=== PATIENT | female | born 1980 | race Caucasian/White ===

== ENCOUNTER → 2018-01-05 15:17 | Outpatient (CLI) | payer OTHER, SELFPAY ==
--- NOTE | 2018-01-05 | DI.US.S_ITS ---
PROCEDURE: US OB >= 14 WEEKS FETUS INDICATIONS: 20 WEEK OUTSIDE/PRIOR DATING DATA: Last menstrual period (LMP): 07/26/2017. LMP-based estimated date of delivery (ULYSSES): 05/03/2018. First dating scan (date and location): 11/24/2017. Estimated date of delivery (ULYSSES) from first dating scan: 04/27/2018. TECHNIQUE: Real-time scanning was performed of the fetus, with image documentation and biometric measurements. Endovaginal scanning: Not required COMPARISON: [facility], , OB COMPLETE LESS THAN 14 WKS, 11/24/2017, 16:23. FINDINGS: General: A single living intrauterine gestation is present. Presentation: Transverse, head to the maternal right. Placenta: Placental position is anterior right, without previa. Amniotic fluid index: 12.6 cm, normal range is 5-24 cm. heart rate: 143 beats per minute. Maternal cervical canal: 4.4 cm long. Normal lower limit is 2.5 cm. biometrics: Biparietal diameter: 22 weeks 5 days Head circumference: 23 weeks 2 days Abdominal circumference: 23 weeks 5 days Femur length: 23 weeks 4 days Estimated gestational age from initial scan: 24 weeks Composite gestational age from present scan: 23 weeks 2 days Estimated weight and percentile: 609 g at the 24th percentile Measurement variability for biometric dating: +/- 7 days from 14 weeks to 15 weeks 6 days gestation, +/- 10 days from 16 weeks to 21 weeks 6 days gestation, +/- 2 weeks from 22 weeks to 27 weeks 6 days gestation, +/- 3 weeks for 28 weeks gestation or later. weight reference: 4500 g or EFW >90/95% is considered macrosomia or large for gestational age. EFW <10% is small for gestational age. EFW 5% or less is considered intra-uterine growth restriction. Anatomic survey: Neuro: Ventricles are non-dilated at less than 10 mm. Cisterna magna is normal at 3-11 mm. Cerebellum is normal in size and morphology. Nuchal skin fold: Normal at less than 6 mm between 14-21 weeks gestational age. Face: Nose and lips, facial profile are normal. Spine: No evidence for spina bifida. Heart: 4-chambered heart is present, with normal ventricular outflow tracts. Diaphragm: Diaphragm is intact. Stomach: Left-sided stomach is present. Kidneys: No hydronephrosis. Normal is less than 5 mm in 2nd trimester, less than 7 mm in 3rd trimester. Cord: 3-vessel cord has orthotopic insertion. Bladder: Normal in size. Extremities: All 4 extremities identified. IMPRESSION: Single, live intrauterine gestation in transverse lie showing composite gestational age of 23 weeks 2 days, normal growth and normal anatomy. Dictated by: Bao Farris M.D. on 01/05/2018 at 16:28 Approved by: Bao Farris M.D. on 01/05/2018 at 16:31
== END ==
PROVIDERS: Family Provider Family Medicine; PCP Family Medicine; Visit Provider Obstetrics & Gynecology
DX: Z36.89 Encounter for other specified antenatal screening (principal); Z3A.23 23 weeks gestation of pregnancy
CPT/HCPCS: 76811

== ENCOUNTER → 2018-02-21 09:37 | Outpatient (CLI) | payer OTHER, SELFPAY ==
[2018-02-21 11:55] LABS: Add Manual Diff / Slide Review NO; Basophils Percent Auto 0.2 % (0-2); Eosinophils Percent Auto 1.3 % (2-4); Hematocrit 36.6 % (36-46); Hemoglobin 12.4 g/dL (12.0-16.0); Lymphocytes Percent Auto 15.1 % (25-40); Mean Corpuscular Hemoglobin 30.6 PG (26-34); Mean Corpuscular Volume 90.1 fL (80-100); Monocytes Percent Auto 5.4 % (3-14); Neutrophils Absolute Auto 8000 /uL (3000-5900); Red Blood Cell Count 4.06 X10^6/uL (4.0-5.2); White Blood Cell Count 10.3 X10^3/uL (4.5-11.0)
[2018-02-21 12:03] LABS: Platelet Count 23 X10^3/uL (150-400)
[2018-02-21 12:14] LABS: RBC Morphology Normal Morphology
[2018-02-21 13:04] LABS: Free T4, Direct Thyroxine 0.78 ng/dL (0.78-2.19)
[2018-02-21 13:18] LABS: Thyroid Stimulating Hormone < 0.02 uIU/mL (0.47-4.68)
== END ==
PROVIDERS: PCP Family Medicine; Visit Provider Obstetrics & Gynecology
DX: D69.6 Thrombocytopenia, unspecified (principal); D69.3 Immune thrombocytopenic purpura; E03.9 Hypothyroidism, unspecified
CPT/HCPCS: 36415; 84439; 84443; 85025

== ENCOUNTER → 2018-04-02 08:14 | Outpatient (CLI) | payer OTHER, SELFPAY ==
[2018-04-02 09:21] LABS: Add Manual Diff / Slide Review NO; Basophils Percent Auto 0.3 % (0-2); Eosinophils Percent Auto 1.4 % (2-4); Hematocrit 37.8 % (36-46); Hemoglobin 12.9 g/dL (12.0-16.0); Lymphocytes Percent Auto 18.7 % (25-40); Mean Corpuscular Hemoglobin 29.8 PG (26-34); Mean Corpuscular Volume 87.6 fL (80-100); Monocytes Percent Auto 4.8 % (3-14); Neutrophils Absolute Auto 8300 /uL (3000-5900); Neutrophils Percent Auto 74.8 % (50-75); Red Blood Cell Count 4.31 X10^6/uL (4.0-5.2); Red Cell Distribution Width 13.4 % (11.6-14.8); White Blood Cell Count 11.1 X10^3/uL (4.5-11.0)
[2018-04-02 09:23] LABS: Platelet Count 26 X10^3/uL (150-400)
[2018-04-03 11:47] LABS: Strep Grp B PCR POS for Grp B Strep
== END ==
PROVIDERS: PCP Family Medicine; Visit Provider Obstetrics & Gynecology
DX: D69.3 Immune thrombocytopenic purpura (principal); Z34.83 Encounter for supervision of other normal pregnancy, third trimester; Z3A.35 35 weeks gestation of pregnancy
CPT/HCPCS: 36415; 85025; 87653

== ENCOUNTER → 2018-04-16 08:47 | Outpatient (CLI) | payer OTHER, SELFPAY ==
[2018-04-16 09:25] LABS: Add Manual Diff / Slide Review NO; Basophils Percent Auto 0.4 % (0-2); Eosinophils Percent Auto 1.2 % (2-4); Hematocrit 39.1 % (36-46); Hemoglobin 13.4 g/dL (12.0-16.0); Lymphocytes Percent Auto 21.7 % (25-40); Mean Corpuscular HGB Conc 34.2 % (30-36); Mean Corpuscular Volume 87.6 fL (80-100); Monocytes Percent Auto 5.4 % (3-14); Neutrophils Absolute Auto 6700 /uL (3000-5900); Neutrophils Percent Auto 71.3 % (50-75); Red Blood Cell Count 4.46 X10^6/uL (4.0-5.2); Red Cell Distribution Width 13.4 % (11.6-14.8); White Blood Cell Count 9.4 X10^3/uL (4.5-11.0)
[2018-04-16 10:00] LABS: Platelet Count 28 X10^3/uL (150-400)
[2018-04-16 10:25] LABS: RBC Morphology Normal Morphology
== END ==
PROVIDERS: PCP Obstetrics & Gynecology; Visit Provider Obstetrics & Gynecology
DX: D69.3 Immune thrombocytopenic purpura (principal)
CPT/HCPCS: 36415; 85025

== ENCOUNTER 2018-04-24 06:38 | Inpatient (IN) | payer OTHER, SELFPAY ==
[2018-04-24] MEDS: LACTATED RINGERS 1,000 ML 100 ML IV (07:15)
[2018-04-24] MEDS: PENICILLIN G POTASSIUM 5,000,000 UNIT in DEXTROSE 5% IN WATER 250 ML IV (07:15)
[2018-04-24 07:29] LABS: Add Manual Diff / Slide Review NO; Basophils Percent Auto 0.4 % (0-2); Eosinophils Percent Auto 0.1 % (2-4); Hematocrit 38.7 % (36-46); Hemoglobin 13.2 g/dL (12.0-16.0); Lymphocytes Percent Auto 10.5 % (25-40); Mean Corpuscular HGB Conc 34.1 % (30-36); Mean Corpuscular Hemoglobin 29.9 PG (26-34); Mean Corpuscular Volume 87.7 fL (80-100); Monocytes Percent Auto 3.7 % (3-14); Neutrophils Absolute Auto 9800 /uL (3000-5900); Neutrophils Percent Auto 85.3 % (50-75); Platelet Count 48 X10^3/uL (150-400); Red Blood Cell Count 4.41 X10^6/uL (4.0-5.2); Red Cell Distribution Width 13.6 % (11.6-14.8); White Blood Cell Count 11.5 X10^3/uL (4.5-11.0)
[2018-04-24] MEDS: OXYTOCIN 10 UNIT/ML VIAL IM (09:14)
[2018-04-24 12:38] VITALS: BP 119/75
[2018-04-25 06:34] LABS: Add Manual Diff / Slide Review NO; Basophils Percent Auto 0.3 % (0-2); Eosinophils Percent Auto 0.5 % (2-4); Hemoglobin 13.2 g/dL (12.0-16.0); Lymphocytes Percent Auto 14.7 % (25-40); Mean Corpuscular HGB Conc 33.8 % (30-36); Mean Corpuscular Hemoglobin 29.7 PG (26-34); Mean Corpuscular Volume 87.8 fL (80-100); Monocytes Percent Auto 6.8 % (3-14); Neutrophils Absolute Auto 9000 /uL (3000-5900); Neutrophils Percent Auto 77.7 % (50-75); Red Blood Cell Count 4.44 X10^6/uL (4.0-5.2); Red Cell Distribution Width 13.9 % (11.6-14.8); White Blood Cell Count 11.5 X10^3/uL (4.5-11.0)
[2018-04-25 07:08] LABS: Platelet Count 16 X10^3/uL (150-400)
[2018-04-25 07:12] LABS: RBC Morphology Normal Morphology
[2018-04-25 11:40] VITALS: BP 120/81; PULSE 68; RESP 16; TEMP 36.8
--- NOTE | 2018-05-03 15:33 | P.HPOB_ITS ---
OB HPI Date/Time Date of admission: 04/24/18 Date Patient Seen: 04/24/18 Time Patient Seen: 07:30 History of Present Condition Chief complaint: OBS : 2 Para: 1 Estimated Date of Delivery: 05/03/18 Estimated Gestational Age (weeks): 38+ 5 Narrative: Sandie Carrillo is a 37 year old female 2 para 1 at 38-,5/7 weeks gestation who presented with ruptured membranes in active labor complicated by ITP and group B strep positive Indications Other reason(s) for admission: Active labor, ruptured membranes History of Present care: limited care, initiated at week # (17), number of visits (3) and pounds weight gain (25) Dating criteria: LMP confirmed by 2nd trimester US Ultrasounds: normal mid trimester US Obstetrical complications: other (ITP) Medical complications: other (ITP) Preadmission Labs Blood type: B (+) positive -: Antibody screen: negative, GBS status: positive, HBsAG: negative, HIV: negative, HSV 1: positive, HSV 2: negative and RPR/VDLR: negative -: Rubella: immune and Varicella: immune HCAB: negative PAP: Abnormal (Low-grade EMMANUEL, HPV negative) Urine: Enterococcus Prior (ies) History: 1 spontaneous vaginal delivery at 39 weeks UW 7#9oz Compl by ITP Evaluation Evaluation Baseline heart rate: 140 Variability: Moderate (11-25) monitor accelerations: Present monitor decelerations: Absent Contraction Frequency (minutes): 2 Uterine Contraction Intensity: Strong/Firm Category of Tracing: I Cervical dilation (cm): 6 Cervical effacement (%): 75 station: -1 Laboratory results: Laboratory Tests 04/24/18 04/24/18 04/25/18 07:15 07:15 05:00 WBC 11.5 H 11.5 H RBC 4.41 4.44 Hgb 13.2 13.2 Hct 38.7 39.0 MCV 87.7 87.8 MCH 29.9 29.7 MCHC 34.1 33.8 RDW 13.6 13.9 Plt Count 48 L 16 L* Neut % (Auto) 85.3 H 77.7 H Lymph % (Auto) 10.5 L 14.7 L [place] % (Auto) 3.7 6.8 Eos % (Auto) 0.1 L 0.5 L Baso % (Auto) 0.4 0.3 Neut # (Auto) 9800 H 9000 H RBC Morphology Normal morphology Blood Type B Positive Antibody Screen Negative Crossmatch See Detail PFSH Medical History Graves' disease (Chronic) Thrombocytopenia (Resolved 1996) Surgical History History of dental surgery (Resolved 04/2008) Family History Father Age: 75 Stroke Liver disease Grandfather Heart disease Heart attack Grandfather Stroke Grandmother Stroke Alzheimer's disease Social History Smoking Status: Never smoker Meds Home Medications Medication Instructions Recorded Confirmed Type thyroid (pork) 60 mg tablet 180 mg PO QDAY@0600 #180 tab 03/20/18 Rx prednisone 20 mg tablet 20 mg PO DAILY #14 tab 04/15/18 Rx prednisone 20 mg PO DAILY 04/24/18 04/24/18 History prednisone 10 mg tablet See Label Instructions PO DAILY 04/25/18 Rx #21 tab prednisone 20 mg tablet See Label Instructions PO DAILY 04/25/18 Rx #47 tab Allergies Allergy/AdvReac Type Severity Reaction Status Date / Time aspirin [ASPIRIN] Allergy Unknown Unverified 11/15/17 12:37 NSAIDS (Non-Steroidal AdvReac Verified 04/24/18 12:42 Anti-Inflamma Exam Vital Signs (past 8 hours): Generally: A well-developed, well-nourished white female, moderate distress secondary to contractions Lungs: Clear to auscultation bilaterally Cardiovascular: Regular rate and rhythm Fundal height: 38 cm Estimated weight:7 1/2 # Extremities: Negative Homans, no edema Objective Labs Result Diagrams: 04/25/18 05:00 Assessment and Plan (1) 38 weeks gestation of : Current visit: Yes Status: Acute (2) Positive GBS test: Current visit: Yes Status: Acute (3) Chronic ITP (idiopathic thrombocytopenia): Current visit: Yes Status: Acute Plan: Plan: Assessment: 37-year-old 2 para 1 at 38-,5/7 weeks gestation in active labor with ruptured membranes GBS positive [place] [id number] Plan: Obtained platelets Epidural once platelets infused GBS prophylaxis Expected management to spontaneous vaginal delivery
--- NOTE | 2018-05-03 15:33 | PM.OBPRVD ---
Delivery date: 04/24/18 Intrapartal events: None Induction method: none Delivery monitor: external FHT and external uterine Route of delivery: Episiotomy description: None Estimated blood loss (mL): 75 Anesthesia type: None Complications: None Narrative: Patient progressed to complete dilation quickly. She was complete and pushed for 2 min. At 9:12 a.m., a live female delivered spontaneously over an intact perineum. No nuchal cord. The remainder of the body delivered without difficulty and was placed on mom's abdomen. Pitocin was given in the IV fluids. The cord was double clamped and cut. Cord bloods were obtained. Placenta delivered intact with a 3 vessel cord at 9:45 a.m.. Estimated blood loss 75 cc. No lacerations. No analgesia. Apgars 9 at 1 min and 9 at 5 min. . Mom and infant stable to recovery.
--- NOTE | 2018-05-03 15:35 | PM.OBDS.1 ---
Discharge Providers Date of admission: 04/24/18 06:38 Primary care physician: Neyda Davis MD Consults: 04/24/18 09:48 Consult to Patient Placement Coordinator Routine Comment: Discharge provider: Neyda Davis MD Summary Date Patient Seen: 04/25/18 Time Patient Seen: 13:45 Hospital Course: Patient is a 37-year-old 2 para 2 who presented in active labor on 04/24/2018. She had ruptured membranes. She was group B strep positive. She received 1 dose of antibiotics. She has chronic [place] [address]. She was not able to get an epidural. She progressed to complete dilation and had an uncomplicated spontaneous vaginal delivery. On day # 1. Her platelet count dropped to 16,000. We recommended a transfusion with platelets, but patient refused. She was sent home on a prednisone taper over the course of a few weeks. Peripartum Data Delivery Method: Natural Vaginal Episiotomy description: None Procedures: Spontaneous vaginal delivery complications: other (Low platelets) Discharge Diagnosis (1) 38 weeks gestation of : Status: Acute (2) Positive GBS test: Status: Acute (3) Chronic ITP (idiopathic thrombocytopenia): Status: Acute Status at Discharge Functional status at discharge: independent ambulation Overall status at discharge: patient is progressing back to baseline Time Spent with Patient Total time spent providing and/or coordinating discharge services: Less than 30 minutes Objective Labs Result Diagrams: 04/25/18 05:00 Discharge Plan Discharge Plan Patient Disposition: Home Discharge comment: Call early if starts to bleed Discharge Med Rec/Prescriptions Prescriptions: No Action thyroid (pork) [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 6 week pp check Oct 17 1130) Provider Discharge Instructions Diet: Diet as Tolerated Activity: No intercourse Skin/Wound/Dressing Care Report to your healthcare provider any signs of infection, such as:: chills, fever, increased pain and unusual drainage Visit Report/Discharge Packet Instructions: DI for Labor and Delivery, Vaginal Stand Alone Forms: Discharge: Care Visit Report Forms: Stroke Signs & Symptoms Discharge Data Primary Care Provider: Neyda Davis Attending Provider: Neyda Davis Admit Date/Time: 04/24/18 06:38 Discharges patient from system. Discharge Date/Time: 04/25/18 14:00
== END 2018-04-25 14:00 | disposition home or self-care (01) | DRG 775 ==
PROVIDERS: Admitting Provider Obstetrics & Gynecology; PCP Obstetrics & Gynecology; Visit Provider Obstetrics & Gynecology
DX: O99.12 Other diseases of the blood and blood-forming organs and certain disorders involving the immune mechanism complicating childbirth (principal); D69.3 Immune thrombocytopenic purpura; O99.824 Streptococcus B carrier state complicating childbirth; Z3A.38 38 weeks gestation of pregnancy; Z37.0 Single live birth
CPT/HCPCS: 36415; 59050; 59410; 84112; 85025; 86850; 86900; 86901; P9019; G0379; J2540; J2590

== ENCOUNTER → 2018-05-01 12:24 | Outpatient (CLI) | payer OTHER, SELFPAY ==
[2018-05-01 13:01] LABS: Platelet Count 74 X10^3/uL (150-400)
== END ==
PROVIDERS: PCP Obstetrics & Gynecology; Visit Provider Obstetrics & Gynecology
DX: D69.3 Immune thrombocytopenic purpura (principal)
CPT/HCPCS: 36415; 85049

== ENCOUNTER → 2018-06-05 13:34 | Outpatient (CLI) | payer OTHER, SELFPAY ==
[2018-06-05 14:16] LABS: Add Manual Diff / Slide Review NO; Basophils Percent Auto 0.4 % (0-2); Eosinophils Percent Auto 2.3 % (2-4); Hematocrit 42.8 % (36-46); Hemoglobin 14.5 g/dL (12.0-16.0); Lymphocytes Percent Auto 23.7 % (25-40); Mean Corpuscular HGB Conc 33.8 % (30-36); Mean Corpuscular Hemoglobin 29.4 PG (26-34); Mean Corpuscular Volume 86.8 fL (80-100); Monocytes Percent Auto 6.6 % (3-14); Neutrophils Absolute Auto 6300 /uL (3000-5900); Red Blood Cell Count 4.93 X10^6/uL (4.0-5.2); Red Cell Distribution Width 13.4 % (11.6-14.8); White Blood Cell Count 9.4 X10^3/uL (4.5-11.0)
[2018-06-05 14:36] LABS: Platelet Count 25 X10^3/uL (150-400)
[2018-06-05 14:38] LABS: Platelet Estimate Decreased on smear
[2018-06-05 14:49] LABS: Free T4, Direct Thyroxine 1.54 ng/dL (0.78-2.19)
[2018-06-05 15:03] LABS: Thyroid Stimulating Hormone < 0.02 uIU/mL (0.47-4.68)
== END ==
PROVIDERS: Family Provider Family Medicine; PCP Obstetrics & Gynecology; Visit Provider Obstetrics & Gynecology
DX: E03.9 Hypothyroidism, unspecified (principal); D69.3 Immune thrombocytopenic purpura
CPT/HCPCS: 36415; 84439; 84443; 85025

== ENCOUNTER → 2018-08-28 17:11 | Outpatient (CLI) | payer OTHER, SELFPAY ==
[2018-08-28 18:38] LABS: Thyroid Stimulating Hormone 0.03 uIU/mL (0.47-4.68)
[2018-08-28 19:12] LABS: Platelet Count 25 X10^3/uL (150-400)
[2018-08-28 19:33] LABS: Platelet Estimate Decreased on smear; RBC Morphology Normal Morphology
== END ==
PROVIDERS: Family Provider Family Medicine; PCP Family Medicine; Visit Provider Family Medicine
DX: D69.3 Immune thrombocytopenic purpura (principal); E03.9 Hypothyroidism, unspecified
CPT/HCPCS: 36415; 84443; 85049

== ENCOUNTER → 2019-12-10 14:06 | Outpatient (CLI) | payer OTHER, SELFPAY ==
[2019-12-10 16:41] LABS: TSH w/ Reflex to FT4 < 0.02 uIU/mL (0.47-4.68)
== END ==
PROVIDERS: Family Provider Family Medicine; PCP Family Medicine; Referring Provider Family Medicine; Visit Provider Family Medicine
DX: E03.9 Hypothyroidism, unspecified (principal); Z86.39 Personal history of other endocrine, nutritional and metabolic disease; Z92.3 Personal history of irradiation
CPT/HCPCS: 36415; 84439; 84443

== ENCOUNTER → 2020-01-28 08:16 | Outpatient (CLI) | payer OTHER, SELFPAY ==
[2020-01-28 10:42] LABS: Thyroid Stimulating Hormone 1.28 uIU/mL (0.47-4.68)
== END ==
PROVIDERS: Family Provider Family Medicine; PCP Family Medicine; Referring Provider Family Medicine; Visit Provider Family Medicine
DX: E03.9 Hypothyroidism, unspecified (principal)
CPT/HCPCS: 36415; 84443

== ENCOUNTER → 2021-06-28 07:46 | Outpatient (CLI) | payer SELFPAY ==
[2021-06-28 10:07] LABS: Thyroid Stimulating Hormone < 0.015 uIU/mL (0.47-4.68)
== END ==
PROVIDERS: Family Provider Family Medicine; PCP Family Medicine; Referring Provider Family Medicine; Visit Provider Family Medicine
DX: E03.9 Hypothyroidism, unspecified (principal)
CPT/HCPCS: 36415; 84443

== ENCOUNTER → 2021-11-24 10:00 | Outpatient (CLI) | payer SELFPAY ==
[2021-11-24 11:12] LABS: TSH w/ Reflex to FT4 0.02 uIU/mL (0.47-4.68)
[2021-11-24 11:37] LABS: Free T4, Direct Thyroxine 1.01 ng/dL (0.78-2.19)
== END ==
PROVIDERS: Family Provider Family Medicine; PCP Family Medicine; Referring Provider Family Medicine; Visit Provider Family Medicine
DX: E03.9 Hypothyroidism, unspecified (principal); Z86.39 Personal history of other endocrine, nutritional and metabolic disease; Z92.3 Personal history of irradiation
CPT/HCPCS: 36415; 84439; 84443

== ENCOUNTER → 2023-01-04 08:41 | Outpatient (CLI) | payer OTHER, MEDICAID, SELFPAY ==
--- NOTE | 2023-01-04 | DI.US.S_ITS ---
PROCEDURE: US OB >= 14 WEEKS FETUS INDICATIONS: 20 weeks gestation of OUTSIDE/PRIOR DATING DATA: Last menstrual period (LMP): 08/18/2022. LMP-based estimated date of delivery (ULYSSES): 05/25/2023 First dating scan (date and location): 01/04/2023. Estimated date of delivery (ULYSSES) from first dating scan: 05/24/2023. TECHNIQUE: Real-time scanning was performed of the fetus, with image documentation and biometric measurements. Endovaginal scanning: Not performed COMPARISON: None from this . FINDINGS: General: A single living intrauterine gestation is present. Presentation: Cephalic. Placenta: Placental position is posterior fundal , without previa. Amniotic fluid index: 14.8 cm, normal range is 5-24 cm. Single deepest vertical pocket is 5.3 cm. heart rate: 147 beats per minute. Maternal cervical canal: 4.0 cm long. Normal lower limit is 2.5 cm. biometrics: Biparietal diameter: 4.6 cm 20 weeks 0 days Head circumference: 17.5 cm 20 weeks 0 days Abdominal circumference: 14.5 cm 19 weeks 6 days Femur length: 3.2 cm 19 weeks 6 days Composite gestational age from present scan: 20 weeks 0 days Estimated weight and percentile: 318 g, 46th percentile Anatomic survey: Neuro: Ventricles are non-dilated at less than 10 mm. Cisterna magna is normal at 3-11 mm. Cerebellum is normal in size and morphology. Nuchal skin fold: Normal at less than 6 mm between 14-21 weeks gestational age. Face: Nose and lips, facial profile are normal. Spine: No evidence for spina bifida. Heart: 4-chambered heart is present, with normal ventricular outflow tracts. Diaphragm: Diaphragm is intact. Stomach: Left-sided stomach is present. Kidneys: No hydronephrosis. Normal is less than 5 mm in 2nd trimester, less than 7 mm in 3rd trimester. Cord: 3-vessel cord has orthotopic insertion. Bladder: Normal in size. Extremities: All 4 extremities identified. IMPRESSION: 1. Single living intrauterine . 2. Normal 2nd trimester anatomy survey. No anatomic anomalies detected at this time. We strive to produce accurate, complete, and clear reports of imaging services. To assist us in improving patient care, this report was composed using standard report templates and voice recognition software. Therefore, it may contain abnormal punctuation, insertions and/or omissions. Occasional wrong-word or sound-alike substitutions may occur. Though we review the report and make efforts to correct it, we do recommend that the report be read carefully in proper context to recognize any text inaccuracies. Dictated by: Dany Mancia M.D. on 01/04/2023 at 16:03 Approved by: Dany Mancia M.D. on 01/04/2023 at 16:10
== END ==
PROVIDERS: Family Provider Family Medicine; PCP Family Medicine; Referring Provider Nurse Practitioner Obstetrics & Gynecology; Visit Provider Nurse Practitioner Obstetrics & Gynecology
DX: Z36.89 Encounter for other specified antenatal screening (principal); Z3A.20 20 weeks gestation of pregnancy
CPT/HCPCS: 76811

== ENCOUNTER → 2023-05-02 07:16 | Outpatient (CLI) | payer OTHER, MEDICAID, SELFPAY ==
[2023-05-02 09:54] LABS: Hematocrit 34.3 % (36-46); Hemoglobin 11.9 g/dL (12.0-16.0); Mean Corpuscular HGB Conc 34.5 % (30-36); Mean Corpuscular Hemoglobin 29.9 PG (26-34); Mean Corpuscular Volume 86.5 fL (80-100); Red Blood Cell Count 3.97 X10^6/uL (4.0-5.2); Red Cell Distribution Width 13.7 % (11.6-14.8); White Blood Cell Count 8.8 X10^3/uL (4.5-11.0)
[2023-05-02 09:58] LABS: Platelet Count 20 X10^3/uL (150-400)
== END ==
PROVIDERS: Family Provider Family Medicine; PCP Family Medicine; Referring Provider Advanced Practice Midwife; Visit Provider Advanced Practice Midwife
DX: Z34.83 Encounter for supervision of other normal pregnancy, third trimester (principal); D69.2 Other nonthrombocytopenic purpura
CPT/HCPCS: 36415; 85027; 86850; 86900; 86901

== ENCOUNTER → 2023-05-10 15:02 | Outpatient (ROUT) | payer OTHER, MEDICAID, SELFPAY ==
[2023-05-10 15:09] LABS: Add Manual Diff / Slide Review NO; Basophils Absolute Auto 0 /uL (0-100); Basophils Percent Auto 0.3 % (0-2); Eosinophils Absolute Auto 0 /uL (0-450); Eosinophils Percent Auto 0.1 % (2-4); Hematocrit 33.5 % (36-46); Hemoglobin 11.2 g/dL (12.0-16.0); Lymphocytes Absolute Auto 1300 /uL (1100-4500); Lymphocytes Percent Auto 11.6 % (25-40); Mean Corpuscular HGB Conc 33.4 % (30-36); Mean Corpuscular Hemoglobin 29.1 PG (26-34); Monocytes Absolute Auto 300 /uL (0-900); Monocytes Percent Auto 2.7 % (3-14); Neutrophils Absolute Auto 9600 /uL (1500-7000); Neutrophils Percent Auto 85.3 % (50-75); Platelet Count 52 X10^3/uL (150-400); Red Blood Cell Count 3.85 X10^6/uL (4.0-5.2); Red Cell Distribution Width 13.8 % (11.6-14.8); White Blood Cell Count 11.2 X10^3/uL (4.5-11.0)
== END ==
PROVIDERS: Family Provider Family Medicine; PCP Family Medicine; Visit Provider Advanced Practice Midwife
DX: D69.42 Congenital and hereditary thrombocytopenia purpura (principal)
CPT/HCPCS: 85025

== ENCOUNTER → 2023-05-16 12:28 | Outpatient (CLI) | payer OTHER, MEDICAID, SELFPAY ==
[2023-05-16 12:45] LABS: Basophils Absolute Auto 0 /uL (0-100); Basophils Percent Auto 0.3 % (0-2); Eosinophils Absolute Auto 0 /uL (0-450); Eosinophils Percent Auto 0.1 % (2-4); Hematocrit 35.8 % (36-46); Hemoglobin 12.1 g/dL (12.0-16.0); Lymphocytes Absolute Auto 1400 /uL (1100-4500); Lymphocytes Percent Auto 10.4 % (25-40); Mean Corpuscular HGB Conc 33.7 % (30-36); Mean Corpuscular Hemoglobin 28.6 PG (26-34); Mean Corpuscular Volume 84.9 fL (80-100); Monocytes Absolute Auto 400 /uL (0-900); Monocytes Percent Auto 3.4 % (3-14); Neutrophils Absolute Auto 11300 /uL (1500-7000); Neutrophils Percent Auto 85.8 % (50-75); Red Blood Cell Count 4.22 X10^6/uL (4.0-5.2); Red Cell Distribution Width 13.8 % (11.6-14.8); White Blood Cell Count 13.2 X10^3/uL (4.5-11.0)
[2023-05-16 12:50] LABS: Add Manual Diff / Slide Review SLIDE REVIEW
[2023-05-16 13:00] LABS: Platelet Count 34 X10^3/uL (150-400)
[2023-05-16 13:08] LABS: RBC Morphology Normal Morphology
== END ==
PROVIDERS: Family Provider Family Medicine; PCP Family Medicine; Referring Provider Nurse Practitioner Obstetrics & Gynecology; Visit Provider Nurse Practitioner Obstetrics & Gynecology
DX: Z34.83 Encounter for supervision of other normal pregnancy, third trimester (principal); D69.2 Other nonthrombocytopenic purpura; Z3A.38 38 weeks gestation of pregnancy
CPT/HCPCS: 85025

== ENCOUNTER 2023-05-18 07:24 | Inpatient (IN) | payer OTHER, MEDICAID, SELFPAY ==
--- NOTE | 2023-05-18 08:00 | P.HPOB_ITS ---
OB HPI Date/Time Date of admission: 05/18/23 Date Patient Seen: 05/18/23 Time Patient Seen: 07:45 History of Present Condition Chief complaint: INDUCTION : 3 Para: 2 Estimated Date of Delivery: 05/25/23 Estimated Gestational Age (weeks): 39 Narrative: Sandie Carrillo is a 42 year old female at 39 weeks 0 days by sure LMP, concordant with 13 week US, here for IOL for thrombocytopenia. She received regular care with CNMs with consultation with Dr.K Davis. complicated by ITP, advanced maternal age and acquired hypothyroidism. Patient declined referral to MFM and hematology throughout her . In preparation for this IOL, Sandie took a two week course of prednisone, 20mg daily initiated on 04/30/23, per recommendation from consulting MD Dr. Davis who delivered her second baby. Prior to starting steroid course her platelets were 20, after one week of therapy they chris to 52 and yesterday had dropped to 34. The blood bank has planned for this induction and has platelets in house. She does NOT plan for an epidural and has no history of PPH. She presents with her Tae, is feeling regular movement, no contractions, LOF or VB. Indications Indication for induction OB: other (idiopathic thrombocytopenia, AMA) History of Present care: good care, initiated at week # (13), number of visits (9) and pounds weight gain (18) Dating criteria: LMP confirmed by 1st trimester US Ultrasounds: normal 1st trimester US and normal mid trimester US Medical complications: other (idiopathic thrombocytopenia ) Preadmission Labs Blood type: B (+) positive -: Antibody screen: negative, GBS status: positive, HBsAG: negative, HIV: negative and RPR/VDLR: negative -: Chlamydia screen: not detected and Gonorrhea screen: not detected -: Rubella: immune and Varicella: immune HCT: 35.8 HCAB: negative PAP: Normal Cell-free DNA: Negative 1 hr GTT: 117 Prior (ies) History: 2017 (Platelets 33 on admission)- no complications with bleeding, CBC normal 2017 (Platelets 48 on admission)- no complications with bleeding, CBC declined by aprents Evaluation Evaluation Baseline heart rate: 130 Variability: Moderate (11-25) monitor accelerations: Present Monitor Decelerations: Absent Contraction Frequency (minutes): 0 Category of Tracing: Reactive Dilation (cm): 3 Effacement (%): 50 Dilation: 3-4 cm Effacement: 40-50% station: -2 Position of cervix: mid Consistency: medium Palomino score: 6 Comments: Sanchez balloon inserted per protocol, inflated to 60mL with normal saline, pt tolerated procedure well PFSH Medical History Thrombocytopenia (1996) Graves' disease Surgical History History of dental surgery (04/2008) Family History Father Age: 80 Stroke Liver disease Grandfather Heart disease Heart attack Grandfather Stroke Grandmother Stroke Alzheimer's disease Social History marital status: Smoking Status: Never smoker alcohol intake: never substance use type: does not use Meds Home Medications and Allergies Home Medications Medication Instructions Recorded Confirmed Type thyroid (pork) 60 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 120 mg (2 x 60 mg) PO QDAY@0600 04/18/22 05/18/23 Rx Thyroid) #180 tabs prednisone 20 mg tablet 20 mg PO DAILY 05/18/23 05/18/23 History Allergies Allergy/AdvReac Type Severity Reaction Status Date / Time aspirin [ASPIRIN] Allergy Unknown Verified 12/12/19 09:26 NSAIDS (Non-Steroidal AdvReac Verified 12/12/19 09:26 Anti-Inflamma Review of Systems Review of Systems ROS: Yes All systems reviewed with the patient and are negative except as otherwise documented OB Exam Vital signs Blood Pressure: 118/80 Pulse Rate: 79 Resp Effort & Inspection: normal respiratory effort Auscultation: clear to auscultation bilaterally Cardio Rate: regular rate Rhythm: regular rhythm Presentation: vertex Objective Labs 05/18/23 07:55 Assessment and Plan Assessment and Plan Assessment and Plan narrative: A: Term multipara IOL, cervical ripening indicated Chronic idiopathic thrombocytopenia AMA Acquried hypothyroidism Prophylactic antibiotics indicated, GBS positive, no signs of infection Rhogam not indicated FHR Cat 1 P: Admit to center Start GBS prophylaxis now Intermittent auscultation per policy Discussed case with Dr. Davis, consulting OB for this case, plan for two IVs, platelet transfusion x1, recheck CBC two hours after infusion complete Taper Prednisone starting tomorrow Informed consent for IOL signed. Discussed options for cervical ripening with Sandie, reviewed risks and benefits of low dose pitocin vs. misoprosotol vs. sanchez balloon. Sandie opted for Sanchez balloon, which was placed during admission exam. Reassess in 4 hours or sooner PRN Will continue to consult/co-manage with throughout labor and as needed.
[2023-05-18 08:23] LABS: Basophils Absolute Auto 100 /uL (0-100); Basophils Percent Auto 0.7 % (0-2); Eosinophils Absolute Auto 0 /uL (0-450); Eosinophils Percent Auto 0.3 % (2-4); Hematocrit 34.7 % (36-46); Hemoglobin 11.9 g/dL (12.0-16.0); Lymphocytes Absolute Auto 1600 /uL (1100-4500); Lymphocytes Percent Auto 12.2 % (25-40); Mean Corpuscular HGB Conc 34.2 % (30-36); Mean Corpuscular Hemoglobin 28.8 PG (26-34); Mean Corpuscular Volume 84.2 fL (80-100); Monocytes Absolute Auto 400 /uL (0-900); Monocytes Percent Auto 2.8 % (3-14); Neutrophils Absolute Auto 10900 /uL (1500-7000); Red Blood Cell Count 4.12 X10^6/uL (4.0-5.2); Red Cell Distribution Width 14.3 % (11.6-14.8)
[2023-05-18 08:26] LABS: Add Manual Diff / Slide Review SLIDE REVIEW; Platelet Count 37 X10^3/uL (150-400)
[2023-05-18] MEDS: AMPICILLIN 2,000 MG in SODIUM CHLORIDE 0.9% 100 ML 200 MG IV (08:27)
[2023-05-18] MEDS: LACTATED RINGERS 1,000 ML 100 ML IV (08:27)
[2023-05-18 08:40] VITALS: BP 118/80; PULSE 79
[2023-05-18 08:49] LABS: RBC Morphology Normal Morphology
[2023-05-18 09:00] VITALS: BP 118/80
[2023-05-18 09:29] VITALS: BP 111/65; PULSE 66; RESP 16; TEMP 36.3
[2023-05-18 09:45] VITALS: BP 110/72; PULSE 68; RESP 17; TEMP 36.4
[2023-05-18 10:45] VITALS: BP 110/72; PULSE 72; RESP 16; TEMP 36.3
--- NOTE | 2023-05-18 12:10 | PM.OBPNLAB ---
Date/Time Date Patient Seen: 05/18/23 Time Patient Seen: 12:10 Pain Control Pain control: tolerating well Comments: Sandie is resting in bed, feeling mild cramps. With CNM and SNM at bedside discussing options, she got up to use the bathroom and the sanchez balloon came out. BP: 113/66 mmHg P: 64 bpm T: 36.3 C Pelvic Exam Amniotic membrane status: Intact Comments: CE deferred until after CBC result.. Contractions Contractions on admission: none Monitor mode: Palpation Contraction frequency (min): 9 (irregular cramping) Contraction pattern: Irregular Contraction intensity: Mild Status Heart Rate Baseline: 135 Monitor Decelerations: Absent Comments: FHR reassuring by IA. Assessment and Plan Assessment: induction ongoing Plan: begin patient augmentation Comments: A: Term multipara IOL, cervical ripening complete, augmentation indicated Idiopathic thrombocytopenia AMA Hypothyroidism Adequate GBS coverage FHR reassuring P: Place second IV and collect CBC to check platelet level following transfusion Continue GBS prophylactic antibiotics per protocol Alternate movement and rest Discussed options of starting pitocin or AROM, Sandie would like us to try breaking her water first Plan for cervical exam and AROM following CBC result. Will order additional platelets as indicated. Plan continuous labor support after AROM.
[2023-05-18] MEDS: AMPICILLIN 1,000 MG in SODIUM CHLORIDE 0.9% 100 ML 200 MG IV ×2 (12:35→16:28)
[2023-05-18 13:11] LABS: Basophils Absolute Auto 0 /uL (0-100); Basophils Percent Auto 0.1 % (0-2); Eosinophils Absolute Auto 0 /uL (0-450); Hematocrit 33.9 % (36-46); Hemoglobin 11.5 g/dL (12.0-16.0); Lymphocytes Absolute Auto 700 /uL (1100-4500); Lymphocytes Percent Auto 4.1 % (25-40); Mean Corpuscular HGB Conc 33.8 % (30-36); Mean Corpuscular Hemoglobin 28.6 PG (26-34); Mean Corpuscular Volume 84.5 fL (80-100); Monocytes Absolute Auto 300 /uL (0-900); Monocytes Percent Auto 1.5 % (3-14); Neutrophils Absolute Auto 16200 /uL (1500-7000); Neutrophils Percent Auto 94.3 % (50-75); Platelet Count 37 X10^3/uL (150-400); Red Blood Cell Count 4.01 X10^6/uL (4.0-5.2); White Blood Cell Count 17.2 X10^3/uL (4.5-11.0)
[2023-05-18 13:12] LABS: Add Manual Diff / Slide Review SLIDE REVIEW
[2023-05-18 13:23] LABS: RBC Morphology Normal Morphology
[2023-05-18 13:24] LABS: Platelet Estimate Decreased on smear
--- NOTE | 2023-05-18 13:41 | PM.OBPNLAB ---
Date/Time Date Patient Seen: 05/18/23 Time Patient Seen: 13:30 Pain Control Pain control: tolerating well Comments: Sandie is doing well, sitting on the end of the bed and looking forward to getting labor going. Continues to desire AROM and avoid pitocin, if possible. BP: 116/63 mmHg P: 86 bpm T: 36.3C Sp02: 98% Pelvic Exam Dilation (cm): 5.5 Effacement (%): 80 station: -3 Amniotic membrane status: Ruptured (AROM, clear fluid) Contractions Monitor mode: External (for NST, palpating with IA) Contraction frequency (min): 3 (irregular cramping, irritability on toco) Contraction duration (min): 1 Contraction pattern: Irregular Contraction intensity: Mild Status status: Category l Heart Rate Baseline: 130 Monitor Accelerations: Present Monitor Decelerations: Absent Monitor Variability: Moderate Comments: FHR reassuring by IA, continuous monitoring before and after AROM Cat 1 Assessment and Plan Assessment: induction ongoing Plan: begin patient augmentation Comments: A: Term multipara IOL, early labor, augmentation indicated AROM, clear fluid Idiopathic thrombocytopenia Adequate GBS prophylaxis FHR Cat 1 P: Continuous FHR monitor for 20 minutes following AROM, if Cat 1 may switch to IA q30 min Upright position for 30 minutes, then alternate movement and rest Consulted Dr. Davis re repeat CBC results - discussed repeat platelets of 37 following transfusion, additional platelets ordered, ok to move forward with plan for IOL and will plan to transfuse again closer to delivery Will consider augmentation if no progress at next check Reassess in 2-4 hrs or sooner PRN
--- NOTE | 2023-05-18 16:58 | PM.OBPNLAB ---
Date/Time Date Patient Seen: 05/18/23 Time Patient Seen: 16:58 Pain Control Pain control: tolerating well Comments: Sandie is laying on her right side while the nurse sets up nitrous oxide for her. She labored in the tub for the last 2 hours with good relief. Contractions are feeling more intense, continues to leak pink/blood tinged amniotic fluid. She declines a cervical exam. BP: 110/65 mmHg P: 80 bpm T: 36.2 C Pelvic Exam Amniotic membrane status: Ruptured (clear fluid) Comments: Ce declined Contractions Monitor mode: Palpation Contraction frequency (min): 3 Contraction duration (min): 1 Contraction pattern: Regular Contraction intensity: Moderate Status Heart Rate Baseline: 140 Comments: FHR reassuring by IA, no decreases. Assessment and Plan Assessment: induction ongoing Comments: A: Term multipara IOL on-going, active labor Idiopathic thrombocytopenia Adequate GBS prophylaxis Coping well FHR reassuring P: Nitrous oxide for pain relief Continuous labor support as Sandie desires Reassess in 2-4 hrs or sooner PRN Anticipate NSVB. Dr. Davis notified.
[2023-05-18] MEDS: TRANEXAMIC ACID 1,000 MG in SODIUM CHLORIDE 0.9% 100 ML 200 MG IV (18:05)
[2023-05-18] MEDS: OXYTOCIN PREMIX 30 UNIT/500 ML PLAST..BAG IV (18:05)
--- NOTE | 2023-05-18 18:24 | PM.OBPRVD ---
Events: Other (idiopathic thrombocytopenia ) Labor & Delivery Delivery date: 05/18/23 Cervical ripening method: per Monet bulb protocol Induction method: AROM Delivery monitor: external FHT Route of delivery: Episiotomy description: None L&D Laceration Description: None Quantitative Blood Loss: 200 Anesthesia Type: Other (nitrous oxide) Narrative: Sandie requested a cervical exam and was found to be 8/100/-1. Shortly after, with CNM and SNM at bedside, she felt increasing rectal pressure and began pushing spontaneously on her right side, using nitrous oxide to cope with contractions. NSVB of vigorous baby girl in RYLEE position, with no nuchal cord and easy delivery of shoulders; placed on maternal abdomen skin to skin. 30mU Pitocin in 500mL LR started at bolus rate for AMSTL. Cord double clamped and cut after 5 minutes, cord blood sample collected. TXA 1g IV administered prophylactically. Gentle cord traction and one maternal push resulted in the spontaneous, Schultze, delivery of an apparently intact placenta, membranes and 3 vessel cord. Fundus immediately firm, midline, U-1. Vagina and perineum inspected and found to be intact, L periurethral skid khloe noted. QBL 200mL. Mom and baby stable and skin to skin as I left the room. [place] Baby 1: Infant gender: Female Presentation: vertex Position: Left Occiput Anterior Placenta delivery description: Spontaneous (Schultze) Cord Vessel Description: 3 Vessels score (5 min): 8 weight: 3.366 kg Plan for aftercare: Routine care
[2023-05-19] MEDS: predniSONE 5 MG TABLET 15 MG PO (06:21)
[2023-05-19] MEDS: THYROID, PORK 30 MG TABLET 120 MG PO (06:22)
[2023-05-19 06:56] LABS: Basophils Absolute Auto 0 /uL (0-100); Basophils Percent Auto 0.4 % (0-2); Eosinophils Absolute Auto 100 /uL (0-450); Eosinophils Percent Auto 0.8 % (2-4); Hematocrit 30.2 % (36-46); Hemoglobin 10.3 g/dL (12.0-16.0); Lymphocytes Absolute Auto 1600 /uL (1100-4500); Lymphocytes Percent Auto 14.4 % (25-40); Mean Corpuscular HGB Conc 34.1 % (30-36); Mean Corpuscular Hemoglobin 28.8 PG (26-34); Mean Corpuscular Volume 84.4 fL (80-100); Monocytes Absolute Auto 700 /uL (0-900); Monocytes Percent Auto 6.4 % (3-14); Neutrophils Absolute Auto 8600 /uL (1500-7000); Red Blood Cell Count 3.58 X10^6/uL (4.0-5.2); White Blood Cell Count 11.1 X10^3/uL (4.5-11.0)
[2023-05-19 07:31] LABS: Add Manual Diff / Slide Review SLIDE REVIEW; Platelet Count 24 X10^3/uL (150-400)
[2023-05-19 08:07] LABS: RBC Morphology Normal Morphology
--- NOTE | 2023-05-19 09:39 | PM.OBDS.1 ---
Discharge Providers Provider Date of admission: 05/18/23 07:24 Discharge Date: 05/19/23 Primary care physician: Elmer Olivier MD Consults: 05/19/23 18:18 Consult to Law Office Assistant Routine Comment: Discharge provider: Jocelyne Landrum CNM Summary Hospital Course Date Patient Seen: 05/19/23 Time Patient Seen: 09:30 Diagnoses: o09.513, D69.42, o80, z3a.39 Hospital Course: PPD#1: NSVB over intact perineum without epidural. IOL for chronic, lifelong ITP, transfusion of platelets x1 prior to IOL, no rise in platelets (37 on admission, 37 after transfusion). 12hr PP CBC platelets 24, which is the patient's baseline, she continues to be asymptomatic; has been severely thrombocytopenic her whole life without clinical complications. Ambulating, voiding and independently. Passing gas and tolerating a normal diet. Bleeding is light, no clots. Pain is well controlled with occasional Tylenol. Isac is supportive at bedside. Both are feeling ready and excited to go home. 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 (3) Encounter for full-term uncomplicated delivery: Status: Acute Problem Details: Recovering well Status at Discharge Cognitive/behavioral status at discharge: at baseline, oriented Functional status at discharge: independent ambulation Overall status at discharge: patient is progressing back to baseline Time Spent with Patient Time attestation: Total time spent providing and/or coordinating discharge services: Objective Labs 05/19/23 06:33 Labs: Laboratory Results - last 24 hr 05/18/23 05/19/23 13:04 06:33 WBC 17.2 H 11.1 H RBC 4.01 3.58 L Hgb 11.5 L 10.3 L Hct 33.9 L 30.2 L MCV 84.5 84.4 MCH 28.6 28.8 MCHC 33.8 34.1 RDW 14.0 14.0 Plt Count 37 L 24 L* Neut % (Auto) 94.3 H 78.0 H Lymph % (Auto) 4.1 L 14.4 L [place] % (Auto) 1.5 L 6.4 Eos % (Auto) 0.0 L 0.8 L Baso % (Auto) 0.1 0.4 Neut # (Auto) 54608 H 8600 H Lymph # (Auto) 700 L 1600 [place] # (Auto) 300 700 Eos # (Auto) 0 100 Baso # (Auto) 0 0 Platelet Estimate Decreased on smear RBC Morphology Normal morphology Normal morphology Exam Vital Signs (past 8 hours): BP: 124/79 mmHG HR: 73 bom RR: 18/min T: 97.9F Temporal Sp02: 98% Other: Fundus firm, midline, U-1 Light bleeding, no clots Perineum intact, minimal edema Discharge Plan Discharge Plan Patient Disposition: Home Discharge orders & Medications Prescriptions: New prednisone 5 mg Tablet 5 mg PO DAILY@0600 4 Days Qty: 8 0RF Rx Instructions: Add 5mg tab to 10mg (half tab of 20mg) for 15mg for 4 days. Then 10mg (half tab of 20mg) for 4 days. Then 5mg for 4 days. Continued thyroid (pork) [TABLE MACHINE OPERATOR Thyroid] 60 mg tablet 120 mg PO QDAY@0600 Qty: 180 1RF Rx Instructions: Take two tablets by mouth daily. Discontinued prednisone 20 mg tablet 20 mg PO DAILY Follow up/Referrals: Jocelyne Landrum CNM [[facility] [employer] [facility]] - 2 Weeks (2 weeks: Monday05/31/2023 @ 2:30pm 6 weeks: Monday06/28/2023 @ 12:45) Elmer Olivier MD [Primary Care Provider] - Diet/Activity/Treatments Diet: Regular Diet comment: Increase hydration, lots of high fiber foods Activity: In and around bed for 2 weeks Cold/Heat Therapy: For comfort Skin/Wound/Dressing Care Skin care: Gentle Report to your healthcare provider any signs of infection, such as:: chills, fever, increased pain, unusual drainage and unusual redness Visit Report/Discharge Packet Instructions: DI for Depression Stand Alone Forms: Discharge: Care, Patient Portal/API Discharge Data Primary Care Provider: Elmer Olivier
== END 2023-05-19 14:15 | disposition home or self-care (01) | DRG 560 ==
PROVIDERS: Admitting Provider Nurse Practitioner Obstetrics & Gynecology; Family Provider Family Medicine; PCP Family Medicine; Referring Provider Nurse Practitioner Obstetrics & Gynecology; Visit Provider Nurse Practitioner Obstetrics & Gynecology
DX: O99.12 Other diseases of the blood and blood-forming organs and certain disorders involving the immune mechanism complicating childbirth (principal); D69.3 Immune thrombocytopenic purpura; Z3A.39 39 weeks gestation of pregnancy; Z37.0 Single live birth; O99.824 Streptococcus B carrier state complicating childbirth; O99.284 Endocrine, nutritional and metabolic diseases complicating childbirth; E03.8 Other specified hypothyroidism
CPT/HCPCS: 36415; 36430; 59050; 85025; 86850; 86900; 86901; G0379; J0290; J2590; P9035